=== PATIENT | female | born 1955 | race Caucasian/White ===

== ENCOUNTER 2023-11-18 10:15 | Outpatient (RCR) | payer MEDICARE, SELFPAY | END 2024-03-17 23:59 | disposition home or self-care (01) | PROVIDERS: Visit Provider Nurse Practitioner Family | DX: M99.05 Segmental and somatic dysfunction of pelvic region (principal); R19.7 Diarrhea, unspecified; K59.00 Constipation, unspecified; N39.3 Stress incontinence (female) (male); R29.898 Other symptoms and signs involving the musculoskeletal system; Z51.89 Encounter for other specified aftercare | CPT/HCPCS: 97110; 97140; 97162 ==